=== PATIENT | male | born 1985 | race Caucasian/White ===

== ENCOUNTER 2017-09-01 17:13 | Emergency (ER) | payer BC ==
[2017-09-01] MEDS ORDERED: Ibuprofen 600 MG Tab PO ONE (17:49)
[2017-09-01] MEDS ORDERED: Orphenadrine 100 MG Tab.ER PO STA (17:49)
--- NOTE | 2017-09-01 17:59 | EDM.PDOC ---
ED HPI GENERAL MEDICAL PROBLEM - General Chief Complaint: Back Pain or Injury Stated Complaint: BACK PAIN Time Seen by Provider: 09/01/17 17:23 Source of Information: Reports: Patient, Family () History Limitations: Reports: No Limitations - History of Present Illness INITIAL COMMENTS - FREE TEXT/NARRATIVE: The patient states that he developed mid back pain this morning, that became worse while he was at work. The pain is worse if he is supine, better if he is standing. No recent injury. No prior similar symptoms. He states that he took 800 mg of ibuprofen around noon. His states that he applied ice to his back , which did not help. The patient does not have a PCP. 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 ED EXAM,LOWER BACK PAIN/INJURY - Physical Exam Exam: See Below Exam Limited By: No Limitations General Appearance: Alert, WD/WN, Mild Distress (Appears uncomfortable when he attempts to move) Eye Exam: Bilateral Eye: Normal Inspection Ears: Normal External Exam, Hearing Grossly Normal Nose: Normal Inspection, No Blood Throat/Mouth: Normal Inspection, Normal Lips, Normal Voice, No Airway Compromise Head: Atraumatic, Normocephalic Neck: Normal Inspection, Full Range of Motion Respiratory/Chest: No Respiratory Distress, Lungs Clear, Normal Breath Sounds, No Accessory Muscle Use Cardiovascular: Normal Peripheral Pulses, Regular Rate, Rhythm, No Edema, No Gallop, No JVD, No Murmur, No Rub GI/Abdominal: Normal Bowel Sounds, Soft, Non-Tender, No Organomegaly, No Distention, No Abnormal Bruit, No Mass (Male) Exam: Deferred Rectal (Males) Exam: Deferred Back Exam: Normal Inspection (No visible abnormality, such as swelling, erythema , ecchymosis, or abrasion), Other (Tender across his entire mid back, left and right. No specific mid-back vertebral spinous process tenderness. The patient is able to flex his spine to approximately 40, and extend splint approximately 30. He is able to tilt the spine bilaterally to approximately 30, and twist the spine bilaterally to approximately 30. Unilateral knee bend is normal bilaterally. Straight leg raise on the left induces mid back pain, but no radicular symptoms, at about 45. Straight leg raise on the right induces mid back pain, but no radicular symptoms, at about 60.). No: CVA Tenderness (L), CVA Tenderness (R) Extremities: Normal Inspection, Normal Range of Motion, Non-Tender, No Pedal Edema, Normal Capillary Refill Neurological: Alert, Normal Dorsiflexion, Normal Plantar Flexion, No Motor/ Sensory Deficits, Oriented x 3 Psychiatric: Normal Affect Skin Exam: Warm, Dry, Intact, Normal Color, No Rash Course - Vital Signs Last Recorded V/S: Last Vital Signs Temp 36.7 C 09/01/17 17:19 Pulse 74 09/01/17 18:06 Resp 18 09/01/17 17:19 BP 112/74 09/01/17 18:06 Pulse Ox 97 09/01/17 17:19 - Orders/Labs/Meds Meds: Medications Discontinued Medications Generic Name Dose Route Start Last Admin Trade Name Freq PRN Reason Stop Dose Admin Ibuprofen 600 mg 09/01/17 17:49 09/01/17 18:04 Motrin PO 09/01/17 17:50 Not Given ONETIME ONE Orphenadrine Citrate 100 mg 09/01/17 17:49 09/01/17 18:05 Norflex PO 09/01/17 17:50 Not Given ONETIME STA - Re-Assessments/Exams Free Text/Narrative Re-Assessment/Exam: 09/01/17 17:52 The patient's history and physical examination are consistent with the patient' s mid back pain being due to a muscle spasm. There is no suggestion of a herniated intervertebral disc. I will start the patient on Norflex and have him continue ibuprofen. I will recommend applying heat and swimming. I will refer him to Dr. Light, should his symptoms not improve over the next couple of days. Departure - Departure Time of Disposition: 17:52 Disposition: Home, Self-Care 01 Condition: Fair Clinical Impression: Muscle spasm of back - Discharge Information Prescriptions: Orphenadrine [Norflex] 1 tab PO Q12H PRN #14 tab.er PRN Reason: Muscle Spasm Instructions: Muscle Cramps and Spasms, [id number] Referrals: PCP,Anayeli [Primary Care Provider] - Mikala Light [Physician] - Forms: ED Department Discharge Additional Instructions: You were seen in the emergency room for mid back pain, without injury. Evaluation in the ER finds that your pain is due to a muscle spasm. You have been started on the muscle relaxant Norflex. A prescription for Norflex has been sent to the [facility], located in the [employer] store. Take one tablet every 12 hours, starting tomorrow morning, , 2017. You have also been started on [id number] ibuprofen. Take 2-3 tablets (400- 600 mg) every 8 hours, with food, as needed for pain. It is very important that you stay active. Swimming is best, but walking is good , as well. You will likely find that heat, such as a warm bath or heating pad, feels better than cold. If you are still having significant pain after 2 or 3 days, please follow-up with Dr. Light in the clinic. If any other problems, please do not hesitate to return to the ER.
== END 2017-09-01 18:05 | disposition home or self-care (01) ==
LOC: JD.ED 17:13
DX: M62.830 Muscle spasm of back (principal); Z88.8 Allergy status to other drugs, medicaments and biological substances
CPT/HCPCS: 99283

== ENCOUNTER 2023-11-01 17:15 | Emergency (ER) | payer BC ==
[2023-11-01 18:00] LABS: BASOPHILS ABSOLUTE AUTO 0.1 K/mm3 (0.0-0.2); BASOPHILS PERCENT AUTO 0.6 % (0.0-1.0); EOSINOPHILS ABSOLUTE AUTO 0.2 K/mm3 (0.0-0.4); EOSINOPHILS PERCENT AUTO 1.7 % (0.0-6.0); HEMATOCRIT 45.8 % (42.0-52.0); HEMOGLOBIN 15.8 gm/dl (14.0-18.0); IMMATURE GRAN ABSOLUTE AUTO 0.04 K/mm3 (0.00-0.05); IMMATURE GRAN PERCENT AUTO 0.4 % (0.0-0.4); LYMPHOCYTES PERCENT AUTO 28.6 % (24.0-44.0); MEAN CORPUSCULAR HGB CONC 34.5 g/dl (32.0-36.0); MEAN CORPUSCULAR VOLUME 92.7 fl (83.0-99.0); MEAN PLATELET VOLUME 9.4 fl (9.4-12.4); MONOCYTES ABSOLUTE AUTO 0.7 K/mm3 (0.0-0.8); MONOCYTES PERCENT AUTO 6.7 % (0.0-8.0); NEUTROPHILS ABSOLUTE AUTO 6.6 K/mm3 (1.8-7.7); PLATELET COUNT,PLT 320 K/mm3 (150-400); RED BLOOD CELL COUNT 4.94 M/mm3 (4.52-5.90); WHITE BLOOD CELL COUNT,WBC 10.62 K/mm3 (3.9-11.3)
[2023-11-01 18:06] LABS: PROTHROMBIN TIME 9.8 SECONDS (9.7-12.0)
[2023-11-01 18:08] LABS: PTT,PARTIAL THROMBOPLSTIN TIME 25.6 SECONDS (21.7-31.4)
[2023-11-01 18:10] LABS: D-DIMER QUANTITATIVE < 0.19 mg/L (0.19-0.50); INR < 0.93
[2023-11-01 18:18] LABS: A/G RATIO 1.1 (1-2); ALANINE AMINOTRANSFERASE,ALT 149 U/L (16-63); ALBUMIN 3.8 g/dl (3.4-5.0); ALKALINE PHOSPHATASE 97 U/L (46-116); ANION GAP 14.5 (5-15); ASPARTATE AMNIOTRANSFERASE,AST 95 U/L (15-37); BILIRUBIN TOTAL 0.3 mg/dL (0.2-1.0); BLOOD UREA NITROGEN,BUN 15 mg/dL (7-18); BUN/CREATININE RATIO 12.5 (14-18); CALCIUM 9.3 mg/dL (8.5-10.1); CARBON DIOXIDE,CO2 27 mEq/L (21-32); CHLORIDE,CL 101 mEq/L (98-107); CREATININE 1.2 mg/dL (0.7-1.3); EST CRCL DRUG DOSING (CG) 82.65 mL/min; ESTIMATED GFR 79 mL/min (>60); GLUCOSE RANDOM 115 mg/dL (70-99); MAGNESIUM 2.1 mg/dL (1.8-2.4); PROTEIN TOTAL,TP 7.3 g/dl (6.4-8.2); SODIUM,NA 139 mEq/L (136-145)
[2023-11-01 18:21] LABS: POTASSIUM,K 3.5 mEq/L (3.5-5.1); TROPONIN I HIGH SENSITIVITY < 4 pg/mL (<=76)
[2023-11-01] MEDS ORDERED: Sodium Chloride 0.9% 10 ML Syringe FLUSH ONE (18:30)
[2023-11-01] MEDS: Alum Hydrox/Mag Hydrox/Simeth 30 ML, Lidocaine 2% 15 ML PO ONE (18:37)
[2023-11-01] MEDS: Iopamidol 612 MG/ML 100 ML Bottle IVPUSH ONE (18:46)
[2023-11-01] MEDS: Ketorolac 30 MG/ML SDV IVPUSH ONE (19:55)
== END 2023-11-01 20:01 | disposition home or self-care (01) ==
LOC: JD.ED 17:15
DX: R07.9 Chest pain, unspecified (principal); R19.7 Diarrhea, unspecified; Z88.8 Allergy status to other drugs, medicaments and biological substances; Z79.899 Other long term (current) drug therapy; M54.9 Dorsalgia, unspecified
CPT/HCPCS: 36415; 71045; 74177; 80053; 83735; 83880; 84484; 85025; 85379; 85610; 85730; 93005; 96374; 99285; A9270; J1885; Q9967; 93010; 99284